=== PATIENT | female | born 1990 | race Two or more races ===

== ENCOUNTER 2022-08-01 09:34 | Emergency (ER) | payer OTHER ==
[~2022-08-01] VITALS: Ht 160 cm; Wt 140.6 kg
== END 2022-08-01 12:45 ==
LOC: ER 09:34
DX: T16.1XXA Foreign body in right ear, initial encounter (principal); X58.XXXA Exposure to other specified factors, initial encounter; Y93.89 Activity, other specified; Y92.89 Other specified places as the place of occurrence of the external cause; Y99.9 Unspecified external cause status; Z91.011 Allergy to milk products; Z91.018 Allergy to other foods